=== PATIENT | female | born 2005 | race Caucasian/White ===

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

== ENCOUNTER 2024-11-30 14:50 | Emergency (ER) | payer MEDICAID, SELFPAY ==
--- NOTE | 2024-11-30 14:59 | ED_ITS ---
HPI - Chest Pain General Chief Complaint: Abdominal Pain Stated Complaint: CP, acid reflux Time Seen by Provider: 11/30/24 16:12 Source: patient and family Mode of arrival: ambulatory Limitations: no limitations History of Present Illness ED Provider: Rut hAnn Solorzano APRN HPI narrative: 19yo female with PMH of asthma here with complaints of multiple episodes of NBNB vomiting followed by chest burning today. Was drinking alcohol last night, smoking weed. Took an over the counter antacid with continued symptoms. 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 No shortness of breath, diarrhea, abdominal pain, fevers, chills, cough, urinary symptoms. Patient reports she had approximately 6 [place] Hard Lemonades, 2 High noon spiked seltzers and one shot of tequila. Related Data Previous Rx's ?Medication ?Instructions ?Recorded prednisone 20 mg tablet 40 mg (2 x 20 mg) PO DAILY 0 05/23/22 inflammation 5 days #10 tabs omeprazole 40 mg capsule,delayed 40 mg PO DAILY #14 ca ps 11/30/24 release ondansetron 4 mg disintegrating 4 mg PO Q6H PRN nausea and 11/30/24 tablet vomiting #20 tabs Allergies Allergy/AdvReac Type Severity Reaction Status Date / Time No Known Allergies Allergy Verified 11/30/24 15:01 Review of Systems Review of Systems: Yes all other systems are reviewed and are negative Constitutional: Constitutional: Reports no additional constitutional com plaints, Denies body ache(s), Denies chills, Denies fever(s), Denies headache(s) and Denies weakness Eyes: Eyes: Reports no additional eye complaints and Denies change in vision ENT: Reports system reviewed and no additional complaints, except as documented, Denies dizziness, Denies headache(s), Denies nasal congestion, Denies nasal discharge and Denies neck pain Cardiovascular: Cardiovascular: Reports no additional cardiovascular complaints, Reports chest pain, Denies leg edema and Denies dyspnea Respiratory: Respiratory: Reports no additional respiratory complaints, Denies cough and Denies dyspnea Gastrointestinal: Gastrointestinal: Reports no additional gastrointestinal complaints, Denies abdominal pain, Denies diarrhea, Reports nausea and Reports vomiting Genitourinary: Genitourinary: Reports no additional female genitourinary complaints and Denies urinary incontinence Musculoskeletal: Musculoskeletal: Reports no additional musculoskeletal complaints, Denies back pain, Denies arthralgias, Denies joint swelling, Denies neck pain, Denies numbness and Denies tingling Integumentary/Breasts: Skin/Breast: Reports system reviewed and no additional complaints, except as docu and Denies rash Neurologic: Reports system reviewed and no additional complaints, except as documented, Denies Abnormal speech present, Denies dizziness, Denies headache(s) , Denies numbness, Denies tingling and Denies weakness PMF Past Medical History Attestation statement: The following information was validated with the patient. Source: old records reviewed and nursing notes reviewed Social History Social History Advance Directives: No Advance Directives Information Provided: Yes Do you have a plan to hurt others: No Plan Physical Exam Vital Signs: Vital Signs: Last Vital Signs Temp 97.4 F 11/30/24 17:11 Pulse 67 11/30/24 17:11 Resp 17 11/30/24 17:11 BP 120/75 11/30/24 17:11 Pulse Ox 99 11/30/24 17:11 O2 Del Method Room Air 11/30/24 17:11 BMI result Body Mass Index 28.9 Const: General: cooperative, healthy appearing, comfortable and no acute distress Orientation/consciousness: patient oriented x3 Limitations: no limitations HEENT: Head: Yes normal to inspection Ears: hearing grossly normal bilaterally General nose exam: Normal external nose present Face and sinus: Yes normal facial exam Mouth: Normal oral and palatal mucosa present Throat: Yes posterior oropharynx normal Eyes: General: appearance normal, both eyes and all related structures Pupils: Equal, round and reactive pupils present Neck: Neck: Yes normal visual inspection Chest: Chest palpation & inspection: normal inspection of the chest Resp: Effort & Inspection: normal respiratory effort Auscultation: clear to auscultation bilaterally Cardio: Rate: regular rate Rhythm: regular rhythm Peripheral pulses: Peripheral pulses 2+ throughout GI: Inspection: Yes normal to inspection Palpation (GI): Soft to palpation and nontender Auscultation: normal bowel sounds Back/Spine/Pelvis: Thoracic/Lumbar Spine: thoracic and lumbar spine normal to inspection Skin: General skin exam: no rashes or lesions noted Neuro: General: patient oriented x3, no focal motor deficits and normal sensation to monofilament Cranial nerves: Yes Equal, round and reactive pupils present Cognition (Neuro): normal cognition Speech: No Abnormal speech present Gait exam (Neuro): Normal gait present Motor exam (neuro): 5/5 motor strength present throughout Extrem: General: Yes normal to inspection Course Course Course Narrative: Ruth Ann Solorzano MIDWIFE PRACTITIONER 11/30 9058 This is a rapid medical exam. Deferred additional HPI, ROS, PE to primary provider. 19yo female with PMH of asthma here with complaints of vomiting, chest burning today. Was drinking alcohol last night, smoking weed. Will give SL zofran. VSS Reevaluation(s) Reevaluation #1: 1600-nausea is improved, will give GI cocktail, will reassess Reevaluation #2: 1700-Feels much improved. Will send home with PPI and zofran PRN. Reviewed worrisome signs and symptoms and when to return to the ER. Comfortable with discharge home. Medications Administered Discontinued Medications Generic Name Dose Route Start Last Admin Trade Name Freq PRN Reason Stop Dose Admin Al Hydroxide/Mg Hydroxide 30 ml 11/30/24 16:12 11/30/24 16:26 Magnesium Hydrox/Alum Hydrox 30 Ml Oral.Susp PO 11/30/24 16:13 30 ml ONCE ONE Administration Lidocaine HCl 15 ml 11/30/24 16:12 11/30/24 16:26 Lidocaine Hcl Viscous 2 % 15 Ml Solution MUCOUS MEM 11/30/24 16:13 15 ml ONCE ONE Administration Ondansetron HCl 4 mg 11/30/24 15:01 11/30/24 15:03 Ondansetron Odt 4 Mg Tab.Rapdis TRANSLINGU 11/30/24 15:02 4 mg ONCE ONE Administration Medical Decision Making Medical Decision Making [facility] Narrative: 19yo female with PMH of asthma here with complaints of multiple episodes of NBNB vomiting followed by chest burning today. Was drinking alcohol last night, smoking weed. Took an over the counter antacid with continued symptoms. 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 No shortness of breath, diarrhea, abdominal pain, fevers, chills, cough, urinary symptoms. Patient reports she had approximately 6 [place] Hard Lemonades, 2 High noon spiked seltzers and one shot of tequila. On exam abdomen is soft nontender. Lungs are clear throughout. Her vitals are stable Will give 4 mg of sublingual Zofran, then reassess Differential Diagnosis Differential Diagnoses: The differential diagnosis associated with the presentation includes Gastritis, GERD Low suspicion for ACS, Boerhaave syndrome, pneumonia, pneumothorax Admission/Observation Consideration of admission/observation: Escalation of care including admission/observation considered Independent Historian Clinical information obtained from an independent historian. History obtained from or confirmed by: Parent Discharge Plan Discharge Clinical Impression: Gastritis Patient Disposition: Home, Self-Care Instructions: Gastritis (ED) Additional Instructions: Start with clear liquids and advance diet as tolerated Take the Zofran as needed Return for worsening pain, multiple episodes of vomiting despite taking Zofran Prescriptions: New ondansetron 4 mg tablet,disintegrating 4 mg PO Q6H PRN (Reason: nausea and vomiting) Qty: 20 0RF omeprazole 40 mg capsule,delayed release(DR/EC) 40 mg PO DAILY Qty: 14 0RF No Action prednisone 20 mg tablet 40 mg PO DAILY 5 Days Qty: 10 0RF Referrals: Tasha Ni NP [Primary Care Provider, Family Practice] Interventions: ED Discharge Assessment Last Done: 11/30/24 17:11 Print Language: Danish
[2024-11-30 15:00] VITALS: BP 120/75; PULSE 67; RESP 17; TEMP 36.3; O2SAT 99; BMI 28.9
--- NOTE | 2024-11-30 15:03 | PC.NURSE ---
pt medicated in triage d/t increase n/v. effectiveness pending.
--- OUTSIDE RECORDS SUMMARY | 2024-11-30 16:22 | XMS_ITS | Clinical Summary ---
Author Organization [facility] Address [address] [place] [id number] Phone Care Team Providers Care Director Summer Sessions Name Role Phone Tasha Ni ENT PHYSICIAN Primary Care Provider [phone] Allergies No known active allergies Medications albuterol 90 mcg/actuation inhaler Inhale 2 puffs into the lungs every 6 (six) hours as needed for wheezing. Active Active Problems No known active problems Social History Tobacco Use Types Packs/Day Years Used Date Smoking Tobacco: Never Smokeless Tobacco: Never Tobacco Cessation:Counseling Given: Not Answered Education Answer Date Recorded Are you interested in more education? Not on hector e 09/18/2023 Are you concerned about learning? Not on file 09/18/2023 No 09/18/2023 No 09/18/2023 Digital Access Answer Date Recorded No 09/18/2023 No 09/18/2023 Reliable internet access at home? Not on file 09/18/2023 Device with a working camera? Not on file Comments Unknown Sex and Gender Information Value Date Recorded Sex Assigned at Not on file Legal Sex Female 12:42 PM EDT Gender Identity Not on file Sexual Orientation Not on file Last Filed Vital Signs Vital Sign Reading Time Taken Comments Blood Pressure 108/70 09/18/2023 1:48 PM EDT Pulse 64 09/18/2023 1:48 PM EDT Temperature 36.9 C (98.5 F) 09/18/2023 1:48 PM EDT Respiratory Rate 16 09/18/2023 1:48 PM EDT Oxygen Saturation 98% 09/18/2023 1:48 PM EDT Inhaled Oxygen Concentration - - Weight 73 kg (161 lb) 09/18/2023 1:48 PM EDT Height 160 cm (5' 3 ) 09/18/2023 1:48 PM EDT Body Mass Index 28.52 09/18/2023 1:48 PM EDT Plan of Treatment Health Maintenance Due Date Last Done Comments MMR VACCINES (1 of 1 - Standard series) 2005 DEVELOPMENTAL/BEHAVIORAL SCREENING (PHQ, PSC, or SWYC) 11/14/2007 COMBINED DTaP,Tdap,Td (1 - Tdap) 11/14/2011 DEPRESSION SCREENING 2016 SMOKING Hx and SMOKELESS TOBACCO SCREENING 2017 VARICELLA VACCINES (1 of 2 - 13+ 2-dose series) 2017 HPV VACCINES (1 - 3-dose series) 11/14/2019 CHLAMYDIA SCREENING 2020 MENINGOCOCCAL VACCINES (B) (1 of 2 - Standard) 2020 ADOLESCENT UNIVERSAL LIPID SCREENING 2021 HEPATITIS C SCREENING 2022 HIV ONE-TIME SCREENING (18-65 YEARS) 2022 INFLUENZA VACCINE (#1) 2024 , 11/27/2021, 10/23/2020 COVID-19 VACCINE ( - 2024- season) 2024 12/03/2022, 11/27/2021, 03/09/2021, Additional history exists MENINGOCOCCAL VACCINES (ACWY) Completed 04/20/2021 HEPATITIS A VACCINES Aged Out No long er eligible based on patient's age to complete this topic HIB VACCINES Aged Out No longer eligi ble based on patient's age to complete this topic PNEUMOCOCCAL VACCINES (0-49 years) Aged Out No longer eligible based on patient's age to complete this topic Medical Devices Not on file Care Teams Director Summer Sessions Relationship Specialty Start Date End Date Tasha Ni NP [address] [id number] PCP - General Nurse Practitioner 09/18/23 Additional Source Comments The information contained in this document represents components of the legal health record. It is not the complete legal health record.[facility]
[2024-11-30] MEDS: Magnesium Hydrox/Alum Hydrox 30 ML ORAL.SUSP PO (16:26)
[2024-11-30] MEDS: Lidocaine HCl Viscous 2 % 15 ML SOLUTION MUCOUS MEM (16:26)
[2024-11-30 17:11] VITALS: BP 120/75; PULSE 67; RESP 17; TEMP 36.3; O2SAT 99
== END 2024-11-30 17:13 | disposition home or self-care (01) ==
PROVIDERS: Emergency Provider Emergency Medicine; PCP Nurse Practitioner Family
DX: K29.70 Gastritis, unspecified, without bleeding (principal); K21.9 Gastro-esophageal reflux disease without esophagitis; R07.89 Other chest pain; F12.90 Cannabis use, unspecified, uncomplicated
CPT/HCPCS: 99282; 99283